=== PATIENT | female | born 2005 | race Two or more races ===

== ENCOUNTER 2025-01-23 07:38 | Emergency (ER) | payer MEDICAID, SELFPAY ==
[2025-01-23 07:47] VITALS: BP 122/80; PULSE 99; RESP 18; TEMP 36.5; O2SAT 99; BMI 30.2
--- NOTE | 2025-01-23 07:53 | XR_ITS ---
Examination: Complete OB ultrasound, less than 14 weeks, transabdominal Date and time of exam: January 23, 2025 0904 hours INDICATIONS: Vaginal bleeding beginning 3 hours ago Technique: Obstetrical ultrasound images less than 14 weeks performed via transabdominal imaging Findings: Uterus 9.1 cm intrauterine gestational sac 0.8 cm corresponds to 5 weeks 4 days gestational age No pole, no cardiac activity Right ovary 2.8 cm arterial flow Left ovary 4.6 cm arterial flow IMPRESSION: Empty intrauterine gestational sac corresponding to 5 weeks 4 days gestational age, no pole, no cardiac activity, recommend short-term follow-up transvaginal pelvic sonography to confirm viability
--- NOTE | 2025-01-23 07:53 | PD.EDVAGBL ---
ED OB Contraction Preg RMI/HPI General Chief complaint: Vaginal Bleeding Stated complaint: 7 weeks OB , Vaginal bleeding Time Seen by Provider: 01/23/25 07:44 Source: patient Arrival date/time: 01/23/25 07:38 19-year-old female with no known medical history presents to the emergency room with a chief complaint of vaginal spotting and dysuria. Patient is currently 7 weeks she is a . Mode of arrival: ambulatory Limitations: no limitations Related Data Allergies Allergy/AdvReac Type Severity Reaction Status Date / Time No Known Drug Allergies Allergy Verified 01/23/25 07:42 Review of Systems Review of Systems Systems Reviewed: All systems reviewed, normal except as documented Constitutional Constitutional: Reports system reviewed and no additional complaints, except as documented, Denies fatigue, Denies fever(s), Denies headache(s) and Denies weakness Eyes Eyes: Reports system reviewed and no additional complaints, except as documented, Denies blurry vision and Denies change in vision ENT Ears, Nose, Mouth, and Throat: Reports system reviewed and no additional complaints, except as documented, Denies otalgia, Denies headache(s), Denies nasal congestion, Denies throat swelling and Denies vertigo Cardiovascular Cardiovascular: Reports system reviewed and no additional complaints, except as documented, Denies chest pain, Denies dyspnea and Denies dyspnea on exertion Respiratory Respiratory: Reports system reviewed and no additional complaints, except as documented, Denies chest congestion, Denies cough, Denies dyspnea, Denies dyspnea on exertion and Denies wheezing Gastrointestinal Gastrointestinal: Reports system reviewed and no additional complaints, except as documented, Denies abdominal pain, Denies cramping, Denies nausea and Denies vomiting Genitourinary Genitourinary: Reports system reviewed and no additional complaints, except as documented, Reports abnormal vaginal bleeding and Reports dysuria Musculoskeletal Musculoskeletal: Reports system reviewed and no additional complaints, except as documented and Denies back pain Integumentary/Breasts Skin/Breast: Reports system reviewed and no additional complaints, except as documented and Denies wounds Neurologic Neurologic: Reports system reviewed and no additional complaints, except as documented, Denies confusion, Denies headache(s), Denies lack of coordination, Denies vertigo and Denies weakness Psychiatric Psychiatric: Reports system reviewed and no additional complaints, except as documented, Denies anxiety, Denies confusion, Denies depression, Denies paranoia, Denies suicidal ideation and Denies tactile hallucinations Endocrine Endocrine: Reports system reviewed and no additional complaints, except as documented and Denies fatigue Hematologic/Lymphatic Hematologic/Lymphatic: Reports system reviewed and no additional complaints, except as documented and Denies lymphadenopathy Allergic/Immunologic Allergic/Immunologic: Reports system reviewed and no additional complaints, except as documented, Denies throat swelling, Denies urticaria and Denies wheezing ED Exam General Limitations: Present no limitations General appearance: Present alert and in no apparent distress Head Head exam: Present atraumatic Eye Eye exam: Present normal appearance, PERRL and EOMI ENT ENT exam: Present normal exam, normal oropharynx and mucous membranes moist Neck Neck exam: Present normal inspection, full ROM and trachea midline Chest Chest inspection: Present normal inspection and symmetric chest wall rise Respiratory Respiratory exam: Present normal lung sounds bilaterally Cardiovascular Cardiovascular exam: Present regular rate, normal rhythm and normal heart sounds Abdominal Exam Abdominal exam: Present soft and normal bowel sounds; Absent tenderness Abdominal tenderness: Absent RLQ or LLQ Extremities Exam Extremities exam: Present normal inspection and full ROM Back Exam Back exam: Present normal inspection and full ROM Neurological Exam Neurological exam: Present alert, oriented X3 and CN II-XII intact Psychiatric Psychiatric exam: Present normal affect and normal mood Skin Skin exam: Present warm, dry, intact and normal color Course Quality Measures none Orders Category Date Time Status US OB <= 14 weeks fetus Stat Exams 01/23/25 07:53 Completed ABO/RH Type Stat Lab 01/23/25 08:07 Completed Beta HCG,Quantitative Stat Lab 01/23/25 08:07 Completed CBC Stat Lab 01/23/25 08:07 Completed CMP [Comprehensive Metabolic Panel] Stat Lab 01/23/25 08:07 Completed UA [Urinalysis] Stat Lab 01/23/25 08:26 Completed Vital Signs Vital signs: Vital Signs Temperature 97.7 F 01/23/25 07:47 Pulse Rate 99 01/23/25 07:47 Respiratory Rate 18 01/23/25 07:47 Blood Pressure 122/80 01/23/25 07:47 Pulse Oximetry (%) 99 01/23/25 07:47 Oxygen Delivery Method Room Air 01/23/25 07:47 Vaginal Bleeding MDM Narrative MDM Narrative: 19-year-old female with no known medical history presents to the emergency room with a chief complaint of vaginal spotting and dysuria. Patient is currently 7 weeks she is a . Patient is hemodynamically stable and in no apparent distress Physical examination shows no abdominal pain or tenderness. An ultrasound OB was completed and shows an empty intrauterine gestational sac corresponding to 5 weeks and 4 days. There is no pole and there is no cardiac activity and a radiologist recommends short-term follow-up with a transvaginal ultrasound to confirm viability. Patient's hCG levels are 3237. The patient was educated to return to the emergency room in 3 days or follow-up with her INFUSION THERAPY NURSE for repeat blood work and a repeat ultrasound Patient was discharged and educated to follow-up with primary care provider in the next 24 to 48 hours and return to the emergency room for any evidence of worsening signs or symptoms Patient data External records reviewed:: [facility] previous records Clinical information provided by:: patient Social determinants that could affect healthcare access:: none Patient has the following chronic illnesses:: No chronic illness How is presenting disease/condition affected by chronic disease/condition?: no chronic disease Evaluation data The following diagnostics were reviewed and interpreted by me:: lab results and radiology exam(s) Lab and/or radiology exams considered but not ordered:: Labs and radiology exams considered and ordered Interpretation Summary: OB ultrasound-Findings: Uterus 9.1 cm intrauterine gestational sac 0.8 cm corresponds to 5 weeks 4 days gestational age No pole, no cardiac activity Right ovary 2.8 cm arterial flow Left ovary 4.6 cm arterial flow IMPRESSION: Empty intrauterine gestational sac corresponding to 5 weeks 4 days gestational age, no pole, no cardiac activity, recommend short-term follow-up transvaginal pelvic sonography to confirm viability Medications / Prescriptions Medications or Prescriptions considered but not ordered:: No medication given Medication administrations:: No medication given Consultations Consultation(s) initiated? (list below): No Diagnosis Vaginal Bleeding Differential Diagnosis: threatened , dysfunctional uterine bleeding, ectopic without intrauterine , vaginal bleeding and other Most likely diagnosis given after review of the tests above:: Vaginal bleeding Admission Indicated Admission indicated?: not indicated Admission Request Was there a request for admission?: No Disposition Plan Disposition Plan: Discharge Discharge Attestation Discharge Attestation: The patient and all family members were given an opportunity to ask questions and understood the discharge instructions. Discharge instructions specifically effects, indications for sooner follow up or return to the emergency department, and the expected course of current diagnosis. Patient condition: Stable Discharge Plan Plan Patient Disposition: HOME (Self Care) Discharge Disposition comment: Stable Prescriptions/Referrals Referrals: No Primary/Family,Physician [Primary Care Provider] - In 1 week Problem List Clinical Impression: Vaginal bleeding Patient/Caregiver Discharge Instructions Education Materials: ED Dysfunctional Uterine Bleeding Additional Instructions: Please follow-up with your INFUSION THERAPY NURSE in the next 24 to 48 hours Your ultrasound was completed and at this time there was an empty gestational sac. There is no cardiac activity. Given that you are only 5 weeks and 4 days for short-term follow-up is recommended to confirm viability. If you are unable to see your INFUSION THERAPY NURSE in the next 72 hours please return to the emergency room for repeat ultrasound and blood work. For any evidence of worsening signs or symptoms return to the emergency room immediately Print Language: Kyrgyz Stand Alone Forms: Olga Award Info., Work/School Release, Patient Portal Info Letter PA/YENNIFER Supervising Physician CRISPIN/YENNIFER Supervising Physician: Dr. Andrews
[2025-01-23 08:27] LABS: Basophils # (Auto) 0.0 Thou/mm3 (0.0-0.2); Basophils % (Auto) 0 % (0-2.5); Eosinophils # (Auto) 0.1 Thou/mm3 (0.0-0.5); Eosinophils % (Auto) 1 % (0-10); Hematocrit 36.3 % (36.0-46.0); Hemoglobin 13.0 g/dL (12.0-16.0); Immature Granulocytes Auto 0.03 Thou/mm3 (0.00-0.00); Lymphocytes # (Auto) 1.1 Thou/mm3 (1.0-4.8); Lymphocytes % (Auto) 16 % (10-50); Mean Corpuscular HGB Conc 35.8 g/dl (31.0-37.0); Mean Corpuscular Hemoglobin 30.4 pg (25.0-35.0); Mean Corpuscular Volume 85 fL (80-100); Monocytes # (Auto) 0.4 Thou/mm3 (0.0-0.8); Monocytes % (Auto) 6 % (0-12); Neutrophils # (Auto) 5.4 Thou/mm3 (1.8-7.7); Neutrophils % (Auto) 76 % (37-80); Nucleated Red Blood Cell # 0.00 Thou/mm3 (0.00-0.00); Nucleated Red Blood Cell % 0 /100 WBC (0); Platelet Count 145 Thou/mm3 (140-440); RDW Standard Deviation 37.4 fL (36.4-46.3); Red Blood Count 4.28 Miln/mm3 (4.00-5.20); White Blood Count 7.1 Thou/mm3 (3.6-11.0)
[2025-01-23 08:34] LABS: Collection Type, Urine Clean Catch
[2025-01-23 08:40] LABS: Bilirubin,Urine Negative (Negative); Blood,Urine Negative (Negative); Clarity,Urine Clear (Clear/Hazy); Color,Urine Lt-Yellow (Lt Yel-Yel); Glucose, Urine Negative (Negative); Ketones,Urine Negative (Negative); Leukocyte Esterase,Urine Negative (Negative); Nitrite,Urine Negative (Negative); PH,Urine 6.0 (5.0-7.0); Protein,Urine Negative (Neg - Trace); RBC,Urine 3 /hpf (0-3); Specific Gravity,Urine 1.011 (1.001-1.035); Squamous Epithelial Cell,Urine 3 /hpf (0-5); Urobilinogen,Urine Negative mg/dL (0.0-1.0); WBC,Urine 1 /hpf (0-5)
[2025-01-23 09:29] LABS: Alanine Aminotransferase 28 U/L (10-49); Albumin, Serum 4.1 gm/dL (3.5-5.0); Albumin/Globulin Ratio 1.7 (1.2-2.2); Alkaline Phosphatase 71 U/L (46-116); Anion Gap 6 (7-16); Aspartate Amino Transferase 25 U/L (0-34); BUN/Creatinine Ratio 7 Ratio (12-20); Beta HCG,Quantitative 3237 mIU/mL (<5.0); Bilirubin,Total 0.5 mg/dL (0.3-1.2); Blood Urea Nitrogen 5 mg/dL (9-23); Calcium 8.7 mg/dL (8.3-10.6); Calcium (Corrected) 8.7 mg/dL (8.5-10.1); Carbon Dioxide 23.3 mMol/L (20.0-31.0); Chloride 108 mMol/L (98-107); Creatinine (Component) 0.7 mg/dL (0.6-1.3); Estimated Creatinine Clearance 130.0 mL/min (>60); Globulin 2.4 gm/dL (2.3-3.5); Glucose 99 mg/dL (74-106); Osmolality,Calculated 271 (275-295); Potassium 4.4 mMol/L (3.4-5.1); Sodium 137 mMol/L (136-145); Total Protein 6.5 gm/dL (5.7-8.2); eGFR > 60 See Note
== END 2025-01-23 10:35 | disposition home or self-care (01) ==
PROVIDERS: Nurse Practitioner Family; Emergency Provider Family Medicine
DX: O20.9 Hemorrhage in early pregnancy, unspecified (principal); Z3A.01 Less than 8 weeks gestation of pregnancy
CPT/HCPCS: 36415; 76801; 80053; 81001; 84702; 85025; 86900; 86901; 99284

== ENCOUNTER 2025-01-26 07:40 | Emergency (ER) | payer MEDICAID, SELFPAY ==
[2025-01-26 07:41] VITALS: BMI 30.2
[2025-01-26 07:45] VITALS: BP 117/77; PULSE 100; RESP 17; TEMP 36.9; O2SAT 98
--- NOTE | 2025-01-26 07:50 | XR_ITS ---
Examination: OB Transvaginal ultrasound of the pelvis, complete Technique: Transvaginal sonographic images pelvis performed using hernandez scale imaging Exam date and time: 01/26/2025 0842 hrs Indications: vaginal bleeding 4 days Findings: Uterus 10.1 cm CRL 0.2 cm corresponds to 5 weeks 5 days gestational age Cardiac motion 118 BPM Right ovary 3.1 cm arterial flow Left ovary 3.5 cm arterial flow Minimal fluid cul de sac and left adnexal region Impression: Viable intrauterine gestation 5 weeks 5 days
--- NOTE | 2025-01-26 07:51 | EDNOTE_ITS ---
ED OB Contraction Preg RMI/HPI General Chief complaint: OB/Uterine Contractions Stated complaint: BLOOD IN URINE; WANTS LAB WORK & AN ULTRASOUND Time Seen by Provider: 01/26/25 07:41 Source: patient Arrival date/time: 01/26/25 07:40 19-year-old female with no known medical history presents to the emergency room with a chief complaint of blood in the urine. Patient is currently 6 weeks she was seen here 3 days ago and was told to return for repeat blood work and ultrasound. Patient is a G1, P0 Mode of arrival: ambulatory Limitations: no limitations Related Data Allergies Allergy/AdvReac Type Severity Reaction Status Date / Time No Known Drug Allergies Allergy Verified 01/26/25 07:43 Review of Systems Review of Systems Systems Reviewed: All systems reviewed, normal except as documented Constitutional Constitutional: Reports system reviewed and no additional complaints, except as documented, Denies fatigue, Denies fever(s), Denies headache(s) and Denies weakness Eyes Eyes: Reports system reviewed and no additional complaints, except as documented, Denies blurry vision and Denies change in vision ENT Ears, Nose, Mouth, and Throat: Reports system reviewed and no additional complaints, except as documented, Denies otalgia, Denies headache(s), Denies nasal congestion, Denies throat swelling and Denies vertigo Cardiovascular Cardiovascular: Reports system reviewed and no additional complaints, except as documented, Denies chest pain, Denies dyspnea and Denies dyspnea on exertion Respiratory Respiratory: Reports system reviewed and no additional complaints, except as documented, Denies chest congestion, Denies cough, Denies dyspnea, Denies dyspnea on exertion and Denies wheezing Gastrointestinal Gastrointestinal: Reports system reviewed and no additional complaints, except as documented, Denies abdominal pain, Denies cramping, Denies nausea and Denies vomiting Genitourinary Genitourinary: Reports system reviewed and no additional complaints, except as documented and Reports abnormal vaginal bleeding Musculoskeletal Musculoskeletal: Reports system reviewed and no additional complaints, except as documented and Denies back pain Integumentary/Breasts Skin/Breast: Reports system reviewed and no additional complaints, except as documented and Denies wounds Neurologic Neurologic: Reports system reviewed and no additional complaints, except as documented, Denies confusion, Denies headache(s), Denies lack of coordination, Denies vertigo and Denies weakness Psychiatric Psychiatric: Reports system reviewed and no additional complaints, except as documented, Denies anxiety, Denies confusion, Denies depression, Denies paranoia, Denies suicidal ideation and Denies tactile hallucinations Endocrine Endocrine: Reports system reviewed and no additional complaints, except as documented and Denies fatigue Hematologic/Lymphatic Hematologic/Lymphatic: Reports system reviewed and no additional complaints, except as documented and Denies lymphadenopathy Allergic/Immunologic Allergic/Immunologic: Reports system reviewed and no additional complaints, except as documented, Denies throat swelling, Denies urticaria and Denies wheezing Past Medical History Social History SMOKING STATUS: Never smoker ED Exam General Limitations: Present no limitations General appearance: Present alert and in no apparent distress Head Head exam: Present atraumatic Eye Eye exam: Present normal appearance, PERRL and EOMI ENT ENT exam: Present normal exam, normal oropharynx and mucous membranes moist Neck Neck exam: Present normal inspection, full ROM and trachea midline Chest Chest inspection: Present normal inspection and symmetric chest wall rise Respiratory Respiratory exam: Present normal lung sounds bilaterally Cardiovascular Cardiovascular exam: Present regular rate, normal rhythm and normal heart sounds Abdominal Exam Abdominal exam: Present soft and normal bowel sounds; Absent distention, tenderness, guarding or rebound Extremities Exam Extremities exam: Present normal inspection and full ROM Back Exam Back exam: Present normal inspection and full ROM Neurological Exam Neurological exam: Present alert, oriented X3 and CN II-XII intact Psychiatric Psychiatric exam: Present normal affect and normal mood Skin Skin exam: Present warm, dry, intact and normal color Course Quality Measures none Orders Category Date Time Status US OB transvaginal Stat Exams 01/26/25 07:50 Completed ABO/RH Type Stat Lab 01/26/25 08:10 Completed Beta HCG,Quantitative Stat Lab 01/26/25 08:10 Completed CBC Stat Lab 01/26/25 08:10 Completed CMP [Comprehensive Metabolic Panel] Stat Lab 01/26/25 08:10 Completed UA [Urinalysis] Stat Lab 01/26/25 08:20 Completed Vital Signs Vital signs: Vital Signs Temperature 98.5 F 01/26/25 07:45 Pulse Rate 100 01/26/25 07:45 Respiratory Rate 17 01/26/25 07:45 Blood Pressure 117/77 01/26/25 07:45 Pulse Oximetry (%) 98 01/26/25 07:45 Oxygen Delivery Method Room Air 01/26/25 07:45 O2 saturation 98% within normal limits OB/Uterine Contractions MDM Narrative MDM Narrative:: 19-year-old female with no known medical history presents to the emergency room with a chief complaint of blood in the urine. Patient is currently 6 weeks she was seen here 3 days ago and was told to return for repeat blood work and ultrasound. Patient is a G1, P0 Patient is hemodynamically stable and in no apparent distress Physical examination shows some mild abdominal cramping. Patient also states she has some mild blood in the urine but states her symptoms have actually gotten better since her last visit. An ultrasound was completed and shows a viable intrauterine gestation at 5 weeks and 5 days. Her cardiac motion is 118 bpm. hCG levels are at 3856. Patient states she has an appointment with her DATA ANALYTICS CHIEF SCIENTIST this Sunday. Patient was discharged and educated to follow-up with primary care provider in the next 24 to 48 hours and return to the emergency room for any evidence of worsening signs or symptoms Patient data External records reviewed:: [facility] previous records Clinical information provided by:: patient Social determinants that could affect healthcare access:: none Patient has the following chronic illnesses:: No chronic illness How is presenting disease/condition affected by chronic disease/condition?: no chronic disease Evaluation data The following diagnostics were reviewed and interpreted by me:: lab results and radiology exam(s) Lab and/or radiology exams considered but not ordered:: Labs and radiology exams considered and ordered Interpretation Summary: Transvaginal ultrasound-Findings: Uterus 10.1 cm CRL 0.2 cm corresponds to 5 weeks 5 days gestational age Cardiac motion 118 BPM Right ovary 3.1 cm arterial flow Left ovary 3.5 cm arterial flow Minimal fluid cul de sac and left adnexal region Impression: Viable intrauterine gestation 5 weeks 5 days Medications / Prescriptions Medications or Prescriptions considered but not ordered:: No medication given Medication administrations:: No medication given Consultations Consultation(s) initiated? (list below): No Diagnosis OB Contractions Differential Diagnosis: other (Vaginal bleeding/threatened /spontaneous /abdominal cramping) Most likely diagnosis given after review of the tests above:: Abdominal cramping with Admission Indicated Admission indicated?: not indicated Explain why admission is indicated or not indicated:: N/A Admission Request Was there a request for admission?: No Disposition Plan Disposition Plan: Discharge Discharge Attestation Discharge Attestation: The patient and all family members were given an opportunity to ask questions and understood the discharge instructions. Discharge instructions specifically effects, indications for sooner follow up or return to the emergency department, and the expected course of current diagnosis. Patient condition: Stable Discharge Plan Plan Patient Disposition: HOME (Self Care) Discharge Disposition comment: Stable Prescriptions/Referrals Referrals: Artemio Joseph MD [Primary Care Provider] - In 1 week Problem List Clinical Impression: Abdominal cramping affecting Patient/Caregiver Discharge Instructions Education Materials: Understanding the Pain Response Additional Instructions: Please follow-up with your DATA ANALYTICS CHIEF SCIENTIST in the next 24 to 48 hours. Your ultrasound shows that you are currently 5 weeks and 5 days . Your heart tones are 118 bpm. Your hCG levels are at 3856 Please follow-up with your primary care provider and DATA ANALYTICS CHIEF SCIENTIST For any evidence of worsening signs or symptoms return to the emergency room immediately Print Language: Swedish Stand Alone Forms: Olga Award Info., Patient Portal Info Letter PA/YENNIFER Supervising Physician CRISPIN/YENNIFER Supervising Physician: Dr. Pleitez
[2025-01-26 08:30] LABS: Basophils # (Auto) 0.0 Thou/mm3 (0.0-0.2); Basophils % (Auto) 1 % (0-2.5); Eosinophils # (Auto) 0.1 Thou/mm3 (0.0-0.5); Eosinophils % (Auto) 1 % (0-10); Hematocrit 36.3 % (36.0-46.0); Hemoglobin 12.6 g/dL (12.0-16.0); Immature Granulocytes Auto 0.04 Thou/mm3 (0.00-0.00); Lymphocytes # (Auto) 1.3 Thou/mm3 (1.0-4.8); Lymphocytes % (Auto) 17 % (10-50); Mean Corpuscular HGB Conc 34.7 g/dl (31.0-37.0); Mean Corpuscular Hemoglobin 30.7 pg (25.0-35.0); Mean Corpuscular Volume 89 fL (80-100); Monocytes # (Auto) 0.4 Thou/mm3 (0.0-0.8); Monocytes % (Auto) 5 % (0-12); Neutrophils # (Auto) 5.8 Thou/mm3 (1.8-7.7); Neutrophils % (Auto) 76 % (37-80); Nucleated Red Blood Cell # 0.00 Thou/mm3 (0.00-0.00); Nucleated Red Blood Cell % 0 /100 WBC (0); Platelet Count 149 Thou/mm3 (140-440); RDW Standard Deviation 38.5 fL (36.4-46.3); Red Blood Count 4.10 Miln/mm3 (4.00-5.20); White Blood Count 7.6 Thou/mm3 (3.6-11.0)
[2025-01-26 08:40] LABS: Collection Type, Urine Clean Catch
[2025-01-26 08:47] LABS: Alanine Aminotransferase 24 U/L (10-49); Albumin, Serum 4.0 gm/dL (3.5-5.0); Albumin/Globulin Ratio 1.9 (1.2-2.2); Alkaline Phosphatase 70 U/L (46-116); Anion Gap 10 (7-16); Aspartate Amino Transferase 23 U/L (0-34); BUN/Creatinine Ratio 7 Ratio (12-20); Bilirubin,Total 0.5 mg/dL (0.3-1.2); Blood Urea Nitrogen 5 mg/dL (9-23); Calcium 9.2 mg/dL (8.3-10.6); Calcium (Corrected) 9.2 mg/dL (8.5-10.1); Carbon Dioxide 21.8 mMol/L (20.0-31.0); Chloride 106 mMol/L (98-107); Creatinine (Component) 0.7 mg/dL (0.6-1.3); Estimated Creatinine Clearance 130.0 mL/min (>60); Globulin 2.1 gm/dL (2.3-3.5); Glucose 125 mg/dL (74-106); Osmolality,Calculated 273 (275-295); Potassium 3.6 mMol/L (3.4-5.1); Sodium 138 mMol/L (136-145); Total Protein 6.1 gm/dL (5.7-8.2); eGFR > 60 See Note
[2025-01-26 08:59] LABS: Bilirubin,Urine Negative (Negative); Blood,Urine Negative (Negative); Clarity,Urine Clear (Clear/Hazy); Color,Urine Lt-Yellow (Lt Yel-Yel); Glucose, Urine Negative (Negative); Ketones,Urine Negative (Negative); Leukocyte Esterase,Urine Negative (Negative); Nitrite,Urine Negative (Negative); PH,Urine 6.5 (5.0-7.0); Protein,Urine Negative (Neg - Trace); RBC,Urine 1 /hpf (0-3); Specific Gravity,Urine 1.008 (1.001-1.035); Squamous Epithelial Cell,Urine 1 /hpf (0-5); Urobilinogen,Urine Negative mg/dL (0.0-1.0); WBC,Urine < 1 /hpf (0-5)
[2025-01-26 09:13] LABS: Beta HCG,Quantitative 3856 mIU/mL (<5.0)
--- NOTE | 2025-01-26 09:34 | CHAP ---
Patient expressed gratitude for visit and prayer.
== END 2025-01-26 10:12 | disposition home or self-care (01) ==
PROVIDERS: Emergency Provider Nurse Practitioner Family; PCP Obstetrics & Gynecology
DX: O26.891 Other specified pregnancy related conditions, first trimester (principal); R10.9 Unspecified abdominal pain; O20.9 Hemorrhage in early pregnancy, unspecified; Z3A.01 Less than 8 weeks gestation of pregnancy
CPT/HCPCS: 36415; 76817; 80053; 81001; 84702; 85025; 86900; 86901; 99283